=== PATIENT | female | born 1980 | race Caucasian/White ===

== ENCOUNTER → 2016-07-29 | Outpatient (CLI) | payer OTHER ==
[~2016-07-29] MED LIST: PRENTAB26 PO
== END | disposition home or self-care (01) ==
LOC: C.PAPS 15:13
PROVIDERS: ATTEND Obstetrics & Gynecology
DX: Z12.4 Encounter for screening for malignant neoplasm of cervix (principal)

== ENCOUNTER → 2017-08-06 | Outpatient (CLI) | payer OTHER ==
--- NOTE | 2017-08-09 11:12 | CODING QUERY MEDICAL NECESSITY ---
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 Please assist us with providing a diagnosis/symptom for the test(s) below: A diagnosis/symptom was not documented on your Order. A valid diagnosis/symptom is required to bill all insurances. Please remember that we are unable to code a diagnosis of rule out, probable, possible, questionable, or suspected. Tests that require a diagnosis: DOS 08/06/17 URINE CULTURE URINE ANALYSIS Provider Signature: Date: Thank you Sona Christine Health Information Management Once completed, please kindly fax back to [phone] For questions please call [phone]
== END | disposition home or self-care (01) ==
LOC: C.LABSPEC 15:49
PROVIDERS: ATTEND Obstetrics & Gynecology

== ENCOUNTER → 2017-08-21 | Outpatient (CLI) | payer OTHER ==
[2017-08-21 17:28] LABS: BASO % 0.2 %; BASO ABS # 0.02 K/uL (0-0.2); EOS % 0.1 %; EOS ABS # 0.01 K/uL (0-0.5); IG# 0.02 K/uL (0.00-0.02); LYMPH % 16.5 %; LYMPH ABS # 1.87 K/uL (1.2-3.4); MEAN CELL VOLUME 90.9 fL (80-100); MEAN CORPUSCULAR HGB CONC 34.1 g/dl (32-36); MONO % 5.8 %; MONO ABS # 0.66 K/uL (0.11-0.59); NEUT % 77.2 %; NEUT ABS # 8.72 K/uL (1.4-6.5); PLATELET COUNT 247 K/uL (130-400); RED CELL DISTRIBUTION WIDTH CV 13.1 % (11.5-14.5); RED CELL DISTRIBUTION WIDTH SD 43.3 fL (36.4-46.3)
== END | disposition home or self-care (01) ==
LOC: C.LAB1850 16:14
PROVIDERS: ATTEND Obstetrics & Gynecology
DX: N63.0 Unspecified lump in unspecified breast (principal); O09.521 Supervision of elderly multigravida, first trimester; Z3A.00 Weeks of gestation of pregnancy not specified

== ENCOUNTER → 2017-08-29 | Outpatient (CLI) | payer OTHER ==
--- NOTE | 2017-09-01 12:41 | MAMMOGRAPHY REPORT ---
ULTRASOUND OF LEFT BREAST: 08/29/2017 CLINICAL HISTORY: The patient is currently 8 weeks , and reports that her doctor felt a palpa ble left breast lump during her first exam. The provider note reports that the lump is loca fatou in the left 2:00 breast and measures approximately 1 cm. COMPARISON: No prior exams were available for comparison. TECHNIQUE: Real-time targeted ultrasound of the left breast was performed. FINDINGS: Real-time, high-resolution targeted ultrasound was performed of the area of the palpable jyoti mp described by the ordering provider, in the left 2:00 breast. The patient cannot clearly pinpoint the lump herself. Sonographically normal tissue is seen in this region, without evidence of a mass o r other suspicious sonographic abnormality. IMPRESSION: ACR BI-RADS CATEGORY 1: NEGATIVE No suspicious sonographic abnormality seen in the region of the palpable left 2:00 breast lump descri bed by the referring provider. Note that the patient could not pinpoint the exact location of the jyoti mp herself. There is no sonographic evidence of malignancy. Recommend clinical follow-up; any decis ion to biopsy should be based on clinical grounds. The patient was verbally notified of the results. Kinza Gay M.D. ah/:08/29/2017 11:38:57 Attending Technologist: Umer SHELTON(Ricardo)(M), [facility] Administrative Assistant: Kinza Gay MD, [facility] letter sent: Normal 1/2 BI-RADS Code: ACR BI-RADS Category 1: Negative
== END | disposition home or self-care (01) ==
LOC: C.MAMM 11:03
PROVIDERS: ATTEND Obstetrics & Gynecology
DX: N63.20 Unspecified lump in the left breast, unspecified quadrant (principal); Z3A.01 Less than 8 weeks gestation of pregnancy

== ENCOUNTER → 2017-10-23 | Outpatient (CLI) | payer OTHER | END | disposition home or self-care (01) | LOC: C.LAB1850 12:05 | PROVIDERS: ATTEND Obstetrics & Gynecology | DX: O09.522 Supervision of elderly multigravida, second trimester (principal); Z3A.00 Weeks of gestation of pregnancy not specified ==

== ENCOUNTER → 2018-01-15 | Outpatient (CLI) | payer OTHER ==
[2018-01-15 13:06] LABS: HEMOGLOBIN 12.9 g/dL (12.0-16.0)
== END | disposition home or self-care (01) ==
LOC: C.LAB1850 12:04
PROVIDERS: ATTEND Obstetrics & Gynecology
DX: O09.523 Supervision of elderly multigravida, third trimester (principal)

== ENCOUNTER → 2018-01-19 | Outpatient (CLI) | payer OTHER | END | disposition home or self-care (01) | LOC: C.LAB1850 07:10 | PROVIDERS: ATTEND Obstetrics & Gynecology | DX: O28.1 Abnormal biochemical finding on antenatal screening of mother (principal); Z3A.00 Weeks of gestation of pregnancy not specified ==

== ENCOUNTER 2024-12-15 20:52 | Observation (INO) ==
[2024-12-15 21:34] LABS: Hematocrit (blood only) 41.8 % (37.0-47.0); Hemoglobin 14.1 g/dl (12.0-16.0); Immature Granulocytes # (auto) 0.07 K/uL (0.01-0.20); Immature Granulocytes % (auto) 0.4 %; Mean Corpuscular Hemoglobin 29.3 pg (25.0-34.0); Mean Corpuscular Volume 86.7 fL (80.0-100.0); Platelet Count 226 K/uL (130-400); RDW Standard Deviation 39.3 fL (36.4-46.3); Red Blood Count 4.82 M/uL (4.20-5.40); White Blood Count 16.75 K/ul (4.8-10.8)
[2024-12-15 21:52] LABS: Alanine Aminotransferase 27.0 U/L (7-52); Albumin Globulin Ratio 1.4 (0.9-2); Alkaline Phosphatase 71.0 U/L (34-104); Anion Gap 11.0 (3-11); Bilirubin,Total 3.0 mg/dl (0.2-1.0); Blood Urea Nitrogen 11.0 mg/dl (6-23); Calcium 9.5 mg/dl (8.6-10.3); Carbon Dioxide 26.0 mmol/L (21-32); Chloride 101.0 mmol/L (98-107); Creatinine Clr Calc Pharmacy 90.6 ml/min; Globulin 3.2 gm/dl (2.5-4.0); Glucose 163.0 mg/dl (70-99(Fasting)); Lipase 9.0 U/L (11-82); Potassium 4.0 mmol/L (3.5-5.1); Sodium 138.0 mmol/L (136-145); Total Protein 7.6 gm/dl (6.0-8.3)
[2024-12-15] MEDS: SODIUM CHLORIDE 0.9% 1,000 ML IV ONE (21:53)
[2024-12-15] MEDS: MoRPHine SULFATE 4 MG/ML 1 ML CARP\\VIAL IV STA (21:54)
[2024-12-15] MEDS: ONDANSETRON INJ 2 MG/ML 2 ML VIAL IV STA (21:54)
[2024-12-15 22:07] LABS: Pregnancy Test, Serum Negative (Negative)
[2024-12-15] MEDS: OPTIRAY 320 100ml IV ONE (22:20)
[2024-12-15] MEDS: MoRPHine SULFATE 4 MG/ML 1 ML CARP\\VIAL ONE (22:29)
[2024-12-15] MEDS: ONDANSETRON INJ 2 MG/ML 2 ML VIAL ONE (22:29)
--- NOTE | 2024-12-15 23:32 | Emergency Department Note ---
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 Patient states she is healthy and no prior abdominal surgeries. No history of ovarian cysts. Patient denies chest pain, dyspnea, fevers, flulike illness. She has been vomiting. No diarrhea. Home Medications Medication Instructions Recorded Confirmed Type fluticasone propionate 50 1 spray intranasal DAILY 12/15/24 12/15/24 History mcg/actuation nasal spray,suspension multivitamin 1 tab PO DAILY 12/15/24 12/15/24 History Allergies Allergy/AdvReac Type Severity Reaction Status Date / Time sulfamethoxazole Allergy Intermediate ITCHY RED Verified 12/15/24 23:02 [From Bactrim] SKIN/NAUSEA/HEADACHE/ABD PAIN trimethoprim [From Bactrim] Allergy Intermediate ITCHY RED Verified 12/15/24 23:02 SKIN/NAUSEA/HEADACHE/ABD PAIN Past Med/Surg History Problem List (Updated 12/16/24 @ 01:31 by Concepcion Henderson PA-C) Acute appendicitis (Acute) Unexplained night sweats Menorrhagia with regular cycle Normal vaginal delivery Encounter for pre-operative examination with 38 completed weeks gestation Medical History (Updated 12/16/24 @ 01:31 by Concepcion Henderson PA-C) Migraine Urinary tract infection Surgical History H/O oral surgery tooth extraction Family History Mother Murmur Thyroid disease Dyslipidemia Sister Murmur Grandmother (Paternal) Thyroid disease Heart disease Dyslipidemia Aunt Thyroid disease Aunt Thyroid disease Grandmother (Maternal) Heart disease Dyslipidemia Grandfather (Maternal) Heart disease Dyslipidemia Grandfather (Paternal) Heart disease Dyslipidemia Other Aortic valve prolapse Arthritis Atypical chest pain Breast cancer Breast lump Cervical cancer Cluster headache Colitis Diabetes Diarrhea Hypertension Osteoporosis Twin Varicella Denies family history of Ovarian cancer Colorectal cancer Social History Smoking Status: Never smoker Second Hand Exposure: No; Do You Dip or Chew Tobacco: No; Tobacco Cessation Education Requested by Patient: No Hx Alcohol Use: Yes Alcohol type: wine Hx Substance Use: No Preferred Language: [place] Communication Ability: Effective Armament Mechanic Required: No Beliefs That Will Affect Care: None marital status: Current Living Situation: Family Other Information That Helps Us Care for You: No Feels Safe at Home: Yes Safety Concerns: Feels Safe At This Time Assistive Devices: Glasses Assistive Devices Comment: glasses for distance Review of Systems A total of 10 systems reviewed and were otherwise negative Physical Exam Vital Signs Vital Signs - 24 hr 12/15/24 20:53 12/15/24 21:39 12/15/24 21:54 Temperature 36.5 C Temperature Source Temporal Artery Scan Pulse Rate 70 63 Pulse Rate [Apical] 70 Pulse Rhythm Regular Pulse Strength Normal Respiratory Rate 18 20 Respiratory Effort / Characteristics Non-Labored Spontaneous Respiratory Depth Normal Respiratory Pattern Regular Blood Pressure 103/68 Blood Pressure [Left Arm] 122/73 Blood Pressure Mean 79 Blood Pressure Mean [Left Arm] 89 Blood Pressure Position Sitting Pulse Oximetry 100 99 Oxygen Delivery Method Room Air Room Air Sepsis Recent Fever Within 48 Hours No Sepsis New/Unexplained Change in Mental Status N/A Sepsis Action Taken by Nursing No Action Required 12/15/24 23:25 Temperature Temperature Source Pulse Rate Pulse Rate [Apical] 71 Pulse Rhythm Pulse Strength Respiratory Rate 20 Respiratory Effort / Characteristics Respiratory Depth Respiratory Pattern Blood Pressure Blood Pressure [Left Arm] 121/70 Blood Pressure Mean Blood Pressure Mean [Left Arm] 87 Blood Pressure Position Pulse Oximetry 99 Oxygen Delivery Method Room Air Sepsis Recent Fever Within 48 Hours Sepsis New/Unexplained Change in Mental Status Sepsis Action Taken by Nursing VITALS: Vitals are noted on the nurse's note and reviewed by myself. Vital signs stable. GENERAL: White female who appears in pain, in no acute distress, nondiaphoretic, well-developed well-nourished. SKIN: Capillary reflex less than 2 seconds. HEENT: Normocephalic. PERRLA. EOMI. Nares patent. Mucous membranes moist. Neck is supple without nuchal rigidity. HEART: Regular rate and rhythm LUNGS: Clear to auscultation bilaterally without wheezes, rales or rhonchi. No retractions or accessory muscle use. ABDOMEN: Positive bowel sounds x 4. Normal tympanic percussion. Soft, diffusely tender to palpation with increased pain in the right lower and upper quadrants, without masses or organomegaly. Peralta sign negative. No guarding or rebound tenderness. no CVA tenderness MUSCULOSKELETAL: No gross musculoskeletal defects. NEURO: Patient was alert and oriented to person place and time. No focal neurological deficits. Course Administered Medications Morphine Sulfate (Morphine Sulfate 4 Mg/Ml 1 Ml Carp\Vial) 4 mg IV Q3H PRN PRN Reason: Pain (6,7,8,9,10) Stop: 12/30/24 00:04 Last Admin: 12/16/24 01:55 Dose: 4 mg Documented By: LUIS Ondansetron HCl (Ondansetron Inj 2 Mg/Ml 2 Ml Vial) 4 mg IV Q6H PRN PRN Reason: Nausea Stop: 01/15/25 00:04 Last Admin: 12/16/24 01:55 Dose: 4 mg Documented By: LUIS Discontinued Medications Sodium Chloride (Nss) 1,000 mls @ 999 mls/hr IV .Q1H1M ONE Stop: 12/15/24 22:40 Last Infusion: 12/15/24 23:29 Dose: Infused Documented By: Admin: 12/15/24 21:53 Dose: 999 mls/hr Documented By: QGV Piperacillin Sod/Tazobactam Sod (Zosyn) 4.5 gm in 100 mls @ 200 mls/hr IV NOW ONE; Protocol Stop: 12/16/24 00:14 Last Admin: 12/16/24 01:55 Dose: 200 mls/hr Documented By: LUIS Ioversol (Optiray 320 100ml) 93 ml IV ONCE ONE Stop: 12/15/24 22:21 Last Admin: 12/15/24 22:20 Dose: 93 ml Documented By: AL Morphine Sulfate (Morphine Sulfate 4 Mg/Ml 1 Ml Carp\Vial) 4 mg IV NOW STA Stop: 12/15/24 21:41 Last Admin: 12/15/24 21:54 Dose: 4 mg Documented By: QGV Morphine Sulfate (Morphine Sulfate 4 Mg/Ml 1 Ml Carp\Vial) Confirm Administered Dose 4 mg .ROUTE .STK-MED ONE Stop: 12/15/24 21:42 Last Admin: 12/15/24 22:29 Dose: Not Given Documented By: QGV Ondansetron HCl (Ondansetron Inj 2 Mg/Ml 2 Ml Vial) 4 mg IV NOW STA Stop: 12/15/24 21:41 Last Admin: 12/15/24 21:54 Dose: 4 mg Documented By: QGV Ondansetron HCl (Ondansetron Inj 2 Mg/Ml 2 Ml Vial) Confirm Administered Dose 4 mg .ROUTE .STK-MED ONE Stop: 12/15/24 21:42 Last Admin: 12/15/24 22:29 Dose: Not Given Documented By: QGV Medical Decision Making Medical Records Attestation: I reviewed the patient's medical records. Home Medications Current Medication List: was personally reviewed by me Laboratory Data Attestation: I reviewed the patient's lab results. 12/15/24 21:22 12/15/24 21:22 Lab Results 12/15/24 12/15/24 12/15/24 Range/Units 21:22 21:54 23:25 WBC 16.75 H (4.8-10.8) K/ul RBC 4.82 (4.20-5.40) M/uL Hgb 14.1 (12.0-16.0) g/dl POC Hgb 14.3 (12.0-16.0) g/dl Hct 41.8 (37.0-47.0) % POC Hct 42 (37-47) % MCV 86.7 (80.0-100.0) fL MCH 29.3 (25.0-34.0) pg MCHC 33.7 (32.0-36.0) g/dL RDW Std Deviation 39.3 (36.4-46.3) fL RDW Coeff of Alexandra 12.3 (11.5-14.5) % Plt Count 226 (130-400) K/uL MPV 10.2 (9.4-12.4) fL Immature Gran % (Auto) 0.4 % Neut % (Auto) 89.4 % Lymph % (Auto) 6.7 % [place] % (Auto) 3.3 % Eos % (Auto) 0.0 % Baso % (Auto) 0.2 % Neut # (Auto) 14.96 H (1.40-6.50) K/uL Lymph # (Auto) 1.13 L (1.20-3.40) K/uL [place] # (Auto) 0.55 (0.11-0.59) K/uL Eos # (Auto) 0.00 (0.00-0.50) K/uL Baso # (Auto) 0.04 (0.00-0.20) K/uL Immature Gran # (Auto) 0.07 (0.01-0.20) K/uL POC Sodium 139 (135-144) mmol/L Sodium 138 (136-145) mmol/L POC Potassium 3.6 (3.3-5.0) mmol/L Potassium 4.0 (3.5-5.1) mmol/L POC Chloride 104 (101-112) mmol/L Chloride 101 (98-107) mmol/L Carbon Dioxide 26 (21-32) mmol/L POC Total CO2 23 L (24-31) mmol/L Anion Gap 11 (3-11) POC Anion Gap 17.0 (16-25) mmol/L POC BUN 10 (7-18) mg/dl BUN 11 (6-23) mg/dl Creatinine 0.78 (0.6-1.2) mg/dl POC Creatinine 0.7 (0.6-1.3) mg/dl Est Cr Clr Drug Dosing 90.6 ml/min eGFR 97.19 BUN/Creatinine Ratio 14.1 (10-20) Glucose 163 H (70-99(Fasting)) mg/dl POC Glucose (other) 158 H (70-99) mg/dl Calcium 9.5 (8.6-10.3) mg/dl POC Ioniz Calcium Sakshi 1.14 (1.12-1.32) mmol/l Total Bilirubin 3.0 H (0.2-1.0) mg/dl AST 15 (13-39) U/L ALT 27 (7-52) U/L Alkaline Phosphatase 71 (34-104) U/L Total Protein 7.6 (6.0-8.3) gm/dl Albumin 4.4 (3.4-5.0) gm/dl Globulin 3.2 (2.5-4.0) gm/dl Albumin/Globulin Ratio 1.4 (0.9-2) Lipase 9 L (11-82) U/L HCG, Qual Negative (Negative) Urine Color Yellow Urine Appearance Clear (Clear) Urine pH 8.0 H (4.5-7.5) Ur Specific [place] > 1.045 H (1.000-1.030) Urine Protein 1+ H (Negative) Urine Glucose (UA) Negative (Negative) Urine Ketones 2+ H (Negative) Urine Blood Negative (Negative) Urine Nitrite Negative (Negative) Urine Bilirubin Negative (Negative) Urine Urobilinogen Negative (Negative) Ur Leukocyte Esterase Negative (Negative) Urine WBC (Auto) 0-5 (0-5) /hpf Urine RBC (Auto) 3-5 H (0-2) /hpf U Hyaline Cast (Auto) 0-2 (0-2) /lpf U Epithel Cells (Auto) 0-2 (0-2) /hpf Urine Bacteria (Auto) None Seen (None Seen) Urine Comment Imaging Data Attestation: I personally reviewed and interpreted this imaging study as follows: Radiologist's Impression: Abdomen/Pelvis CT 12/15/24 21:46 CR Exam(s): CT ABDOMEN + PELVIS With Contrast IV Amt: 93 cc opti 320 EXAM: CT Abdomen and Pelvis With Intravenous Contrast CLINICAL HISTORY: Reason for exam: severe pain started RLQ, now all over. TECHNIQUE: Axial computed tomography images of the abdomen and pelvis with intravenous contrast. CTDI is 14.64 mGy and DLP is 743.73 mGy-cm. Automated exposure control was utilized for the study. A dose lowering technique was utilized adhering to the principles of ALARA. CONTRAST: Patient received 93 cc opti 320 of IV contrast COMPARISON: No relevant prior studies available. FINDINGS: Lung bases: Unremarkable. No mass. No consolidation. ABDOMEN: Liver: Unremarkable. No mass. Gallbladder and bile ducts: Unremarkable. No calcified stones. No ductal dilation. Pancreas: Unremarkable. No mass. No ductal dilation. Spleen: Unremarkable. No splenomegaly. Adrenals: Unremarkable. No mass. Kidneys and ureters: Unremarkable. No solid mass. No hydronephrosis. Stomach and bowel: Unremarkable. No obstruction. No mucosal thickening. PELVIS: Appendix: Wall thickening and inflammatory changes about the appendix. No periappendiceal abscess. Bladder: Unremarkable. No mass. Reproductive: Unremarkable as visualized. ABDOMEN and PELVIS: Intraperitoneal space: Trace free fluid within the dependent pelvis likely physiologic in nature. No free air. Bones/joints: No acute fracture. No dislocation. Soft tissues: Unremarkable. Vasculature: Unremarkable. No abdominal aortic aneurysm. Lymph nodes: Unremarkable. No enlarged lymph nodes. IMPRESSION: Acute appendicitis without periappendiceal abscess Gene and Karena Michelle marcy common [employer] Communications: Call Doctor Appendicitis Electronically signed by: Seth Shaw MD 12/15/24 23:40 PM Pelvis Ultrasound 12/15/24 21:46 Exam(s): US PELVIS EXAM: US Pelvis Transabdominal, Complete CLINICAL HISTORY: Reason for exam: severe pain, ? ruptured cyst/torsion. TECHNIQUE: Real-time complete transabdominal pelvic ultrasound with image documentation. COMPARISON: No relevant prior studies available. FINDINGS: Uterus/cervix: Unremarkable. Normal endometrial stripe thickness. No myometrial mass. Right ovary: Unremarkable. No mass. Normal blood flow. Left ovary: Unremarkable. No mass. Normal blood flow. Free fluid: Trace free fluid within dependent pelvis. Bladder: Unremarkable as visualized. Wall is normal thickness for degree of distention. IMPRESSION: No acute findings in the pelvis. No evidence of torsion Electronically signed by: Seth Shaw MD 12/16/24 00:27 AM MDM Narrative Prior records/ancillary studies reviewed. Triage Nursing notes reviewed. Additional history obtained from family. The patient's history was concerning for abdominal pain. Differential diagnosis: Etiologies such as ovarian cyst, ruptured cyst, torsion, , ectopic , appendicitis, diverticulitis, PUD, biliary pathology, UTI, pancreatitis, obstruction, mesenteric ischemia, aortic pathology, infections, inflammatory bowel disease, renal colic, as well as others were entertained. Physical examination findings: As above. ER treatment provided: An order was placed for continuous cardiac monitoring. The monitor shows a rate of 60-100 with a sinus rhythm per my Independent interpretation. Rapid bedside ultrasound shows trace free fluid in the pelvic cul-de-sac per my independent interpretation. IV fluids, morphine, Zofran and fentanyl were ordered Zosyn was ordered for acute appendicitis On reassessment the patient felt better. Diagnostics interpreted by me: The labs Independently Interpreted by myself revealed leukocytosis, stable H&H, negative hCG Imaging studies: Imaging was reviewed and read by radiology Consultation: A consultation was placed with the surgery, Dr. Alvarez. The case was discussed and diagnostics were reviewed. The patient was evaluated in the ER for further treatment. Exam and history seem consistent with acute appendicitis. Surgery was consulted. They will take the patient to the OR in the morning. Patient was placed NPO. Results reviewed with patient and all questions were answered. Patient was admitted to the surgical service. By the evaluation outlined above emergent etiologies such as diverticulitis, PUD, biliary pathology, UTI, pancreatitis, obstruction, mesenteric ischemia, aortic pathology, inflammatory bowel disease, renal colic, as well as others were deemed relatively unlikely. The pt informed about the findings as listed above. All questions were answered and pleased with the treatment. The chart was completed utilizing [employer] Speech voice recognition software. Grammatical errors, random word insertions, pronoun errors, and incomplete sentences are an occassional consequence of this system due to software limitations, ambient noise, and hardware issues. Any formal questions or concerns about the content, text, or information contained within the body of this dictation should be directly addressed to the physician assistant activities director for clarification. Impression & Plan Acute appendicitis Discharge Plan Visit Data Chief Complaint: Abdominal Pain Stated Complaint: ABD PAIN,VOMITING ED Provider: Chelle Johnson ED Midlevel Provider: Concepcion Henderson Discharge Problem: Acute appendicitis Patient Disposition: Admitted As Inpatient Condition: Good Discharge Instructions Interventions: ED Discharge Assessment Last Done: 12/16/24 02:16 Discharge Problem: Acute appendicitis Qualifiers: Acute appendicitis type: unspecified acute appendicitis type Qualified Code(s): K35.80 - Unspecified acute appendicitis
--- NOTE | 2024-12-15 23:41 | CT Scan Report ---
Exam(s): CT ABDOMEN + PELVIS With Contrast IV Amt: 93 cc opti 320 EXAM: CT Abdomen and Pelvis With Intravenous Contrast CLINICAL HISTORY: Reason for exam: severe pain started RLQ, now all over. TECHNIQUE: Axial computed tomography images of the abdomen and pelvis with intravenous contrast. CTDI is 14.64 mGy and DLP is 743.73 mGy-cm. Automated exposure control was utilized for the study. A dose lowering technique was utilized adhering to the principles of ALARA. CONTRAST: Patient received 93 cc opti 320 of IV contrast COMPARISON: No relevant prior studies available. FINDINGS: Lung bases: Unremarkable. No mass. No consolidation. ABDOMEN: Liver: Unremarkable. No mass. Gallbladder and bile ducts: Unremarkable. No calcified stones. No ductal dilation. Pancreas: Unremarkable. No mass. No ductal dilation. Spleen: Unremarkable. No splenomegaly. Adrenals: Unremarkable. No mass. Kidneys and ureters: Unremarkable. No solid mass. No hydronephrosis. Stomach and bowel: Unremarkable. No obstruction. No mucosal thickening. PELVIS: Appendix: Wall thickening and inflammatory changes about the appendix. No periappendiceal abscess. Bladder: Unremarkable. No mass. Reproductive: Unremarkable as visualized. ABDOMEN and PELVIS: Intraperitoneal space: Trace free fluid within the dependent pelvis likely physiologic in nature. No free air. Bones/joints: No acute fracture. No dislocation. Soft tissues: Unremarkable. Vasculature: Unremarkable. No abdominal aortic aneurysm. Lymph nodes: Unremarkable. No enlarged lymph nodes. IMPRESSION: Acute appendicitis without periappendiceal abscess Jonathan vidal common teen Communications: Call Doctor Appendicitis Electronically signed by: Seth Shaw MD 12/15/24 23:40 PM
[2024-12-16 00:04] LABS: Appearance Urine Clear (Clear); Bacteria Urine Automated None Seen (None Seen); Cast Urine Automated 0-2 /lpf (0-2); Epithelial Cell Urine Auto 0-2 /hpf (0-2); Glucose Urine UA Negative (Negative); WBC Urine Automated 0-5 /hpf (0-5)
[2024-12-16] MEDS ORDERED: MoRPHine SULFATE 2 MG/ML CARP IV PRN (00:05)
[2024-12-16] MEDS ORDERED: ACETAMINOPHEN 325 MG TAB PO PRN (00:05)
--- NOTE | 2024-12-16 00:29 | Ultrasound Report ---
Exam(s): US PELVIS EXAM: US Pelvis Transabdominal, Complete CLINICAL HISTORY: Reason for exam: severe pain, ? ruptured cyst/torsion. TECHNIQUE: Real-time complete transabdominal pelvic ultrasound with image documentation. COMPARISON: No relevant prior studies available. FINDINGS: Uterus/cervix: Unremarkable. Normal endometrial stripe thickness. No myometrial mass. Right ovary: Unremarkable. No mass. Normal blood flow. Left ovary: Unremarkable. No mass. Normal blood flow. Free fluid: Trace free fluid within dependent pelvis. Bladder: Unremarkable as visualized. Wall is normal thickness for degree of distention. IMPRESSION: No acute findings in the pelvis. No evidence of torsion Electronically signed by: Seth Shaw MD 12/16/24 00:27 AM
[2024-12-16] MEDS: PIPERACILLIN/TAZOBACTAM 4.5 GM/100 ML BAG IV ONE (01:43)
[2024-12-16] MEDS: ONDANSETRON INJ 2 MG/ML 2 ML VIAL IV PRN (01:55)
[2024-12-16] MEDS: MoRPHine SULFATE 4 MG/ML 1 ML CARP\\VIAL IV PRN (01:55)
[2024-12-16] MEDS: LACTATED RINGER'S 1,000 ML IV SCH (03:13)
[2024-12-16] MEDS: PIPERACILLIN/TAZOBACTAM 4.5 GM/100 ML BAG IV SCH (06:31)
--- NOTE | 2024-12-16 09:15 | History & Physical Report ---
Date of Service December 16, 2024 Assessment & Plan (1) Acute appendicitis: Plan: IV abx IVF to OR for lap nura Acute appendicitis type: unspecified acute appendicitis type Qualified Code(s): K35.80 - Unspecified acute appendicitis Admission and Anticipated Discharge Date Admission Date: December 16, 2024 History of Present Illness Primary Care Provider: Kurtis Merritt DO This is a 44-year-old female admitted through the ED with an acute appendicitis. She came in with abdominal pain underwent a workup which showed an obvious early appendicitis. She has begun on IV antibiotics. Allergies Allergy/AdvReac Type Severity Reaction Status Date / Time sulfamethoxazole Allergy Intermediate ITCHY RED Verified 12/16/24 08:51 [From Bactrim] SKIN/NAUSEA/HEADACHE/ABD PAIN trimethoprim [From Bactrim] Allergy Intermediate ITCHY RED Verified 12/16/24 08:51 SKIN/NAUSEA/HEADACHE/ABD PAIN Home Medications Medication Instructions Recorded Confirmed Type fluticasone propionate 50 1 spray intranasal DAILY 12/15/24 12/15/24 History mcg/actuation nasal spray,suspension multivitamin 1 tab PO DAILY 12/15/24 12/15/24 History Past Med/Surg History Problem List Acute appendicitis (Acute) Unexplained night sweats Menorrhagia with regular cycle Normal vaginal delivery Encounter for pre-operative examination with 38 completed weeks gestation Medical History Migraine Urinary tract infection Surgical History H/O oral surgery tooth extraction Family History Mother Murmur Thyroid disease Dyslipidemia Sister Murmur Grandmother (Paternal) Thyroid disease Heart disease Dyslipidemia Aunt Thyroid disease Aunt Thyroid disease Grandmother (Maternal) Heart disease Dyslipidemia Grandfather (Maternal) Heart disease Dyslipidemia Grandfather (Paternal) Heart disease Dyslipidemia Other Aortic valve prolapse Arthritis Atypical chest pain Breast cancer Breast lump Cervical cancer Cluster headache Colitis Diabetes Diarrhea Hypertension Osteoporosis Twin Varicella Denies family history of Ovarian cancer Colorectal cancer Social History Smoking Status: Never smoker Second Hand Exposure: No; Do You Dip or Chew Tobacco: No; Tobacco Cessation Education Requested by Patient: No Hx Alcohol Use: Yes Alcohol type: wine Hx Substance Use: No Preferred Language: Vietnamese Communication Ability: Effective Goat Herder Required: No Beliefs That Will Affect Care: None marital status: Current Living Situation: Family Other Information That Helps Us Care for You: No Feels Safe at Home: Yes Safety Concerns: Feels Safe At This Time Assistive Devices: Glasses Assistive Devices Comment: glasses for distance Review of Systems + anorexia; no fever and no chills no problem reported no problem reported no cough and no dyspnea no chest pain + abdominal pain; no nausea, no vomiting and no change in bowel habits no dysuria no back pain no problem reported no localized weakness and no generalized weakness no behavioral changes no easy bleeding and no easy bruising Physical Exam Constitutional: WD/WN, vitals as above Eyes: no scleral abnormality ENMT: external ear and nose normal, oropharynx normal Neck: trachea midline Respiratory: normal respiratory effort, lungs clear to auscultation Cardiovascular: RRR, no murmur, no edema Gastrointestinal (Abdomen): Inspection/Auscultation: abdomen normal to inspection and normal bowel sounds; abdomen not distended Percussion/Palpation: + abdomen tender, + guarding and abdomen soft; abdomen not rigid Musculoskeletal: Head/Neck/Chest: normocephalic and head atraumatic Skin: no rashes, warm and dry Results & Data Vital Signs (Past 12 Hours) Vital Signs Temp Pulse Pulse Pulse Resp BP BP 12/16/24 08:45 36.7 C 90 15 111/67 12/16/24 07:16 37.5 C 74 17 95/60 L 12/16/24 02:16 87 18 121/74 12/16/24 02:15 37.4 C 87 16 117/72 12/15/24 23:25 71 20 121/70 12/15/24 21:54 63 12/15/24 21:39 70 20 122/73 Pulse Ox O2 Del Method 12/16/24 08:45 94 Room Air 12/16/24 07:16 98 Room Air 12/16/24 02:16 97 Room Air 12/16/24 02:15 98 Room Air 12/15/24 23:25 99 Room Air 12/15/24 21:54 12/15/24 21:39 99 Room Air Diagnostic Findings Exam(s): CT ABDOMEN + PELVIS With Contrast IV Amt: 93 cc opti 320 EXAM: CT Abdomen and Pelvis With Intravenous Contrast CLINICAL HISTORY: Reason for exam: severe pain started RLQ, now all over. TECHNIQUE: Axial computed tomography images of the abdomen and pelvis with intravenous contrast. CTDI is 14.64 mGy and DLP is 743.73 mGy-cm. Automated exposure control was utilized for the study. A dose lowering technique was utilized adhering to the principles of ALARA. CONTRAST: Patient received 93 cc opti 320 of IV contrast COMPARISON: No relevant prior studies available. FINDINGS: Lung bases: Unremarkable. No mass. No consolidation. ABDOMEN: Liver: Unremarkable. No mass. Gallbladder and bile ducts: Unremarkable. No calcified stones. No ductal dilation. Pancreas: Unremarkable. No mass. No ductal dilation. Spleen: Unremarkable. No splenomegaly. Adrenals: Unremarkable. No mass. Kidneys and ureters: Unremarkable. No solid mass. No hydronephrosis. Stomach and bowel: Unremarkable. No obstruction. No mucosal thickening. PELVIS: Appendix: Wall thickening and inflammatory changes about the appendix. No periappendiceal abscess. Bladder: Unremarkable. No mass. Reproductive: Unremarkable as visualized. ABDOMEN and PELVIS: Intraperitoneal space: Trace free fluid within the dependent pelvis likely physiologic in nature. No free air. Bones/joints: No acute fracture. No dislocation. Soft tissues: Unremarkable. Vasculature: Unremarkable. No abdominal aortic aneurysm. Lymph nodes: Unremarkable. No enlarged lymph nodes. IMPRESSION: Acute appendicitis without periappendiceal abscess Code Status & VTE Plan VTE Prophylaxis Plan VTE Prophylaxis will be ordered: Yes
[2024-12-16] MEDS ORDERED: PROMETHAZINE HCL 6.25 MG in SODIUM CHLORIDE 0.9% 50 ML IV PRN (09:39)
[2024-12-16] MEDS ORDERED: HYDROmorphone INJ 2 MG/ML SYR/VIAL IV PRN (09:39)
[2024-12-16] MEDS ORDERED: ATROPINE SULFATE 0.1 MG/ML 10ML SYR IV PRN (09:39)
--- NOTE | 2024-12-16 09:39 | Anesthesiology Consultation ---
Date of Service December 16, 2024 Assessment & Plan ASA ASA1 Proposed Anesthesia Anesthesia Type: General Risk / Benefits Reviewed With: PT / POA / Parent / Guardian, Accepts Plan and Informed Consent Obtained History Surgery Operation Date: 12/16/24 07:00 Proposed Procedures p Laparoscopic Appendectomy - Gama Curtis MD Height/Weight Height: 5 ft 4 in Weight: 71.2 kg Allergies Allergy/AdvReac Type Severity Reaction Status Date / Time sulfamethoxazole Allergy Intermediate ITCHY RED Verified 12/16/24 08:51 [From Bactrim] SKIN/NAUSEA/HEADACHE/ABD PAIN trimethoprim [From Bactrim] Allergy Intermediate ITCHY RED Verified 12/16/24 08:51 SKIN/NAUSEA/HEADACHE/ABD PAIN Medications Home Medications Medication Instructions Recorded Confirmed Last Taken fluticasone propionate 50 1 spray intranasal DAILY 12/15/24 12/15/24 12/15/24 mcg/actuation nasal spray,suspension multivitamin 1 tab PO DAILY 12/15/24 12/15/24 12/15/24 Active Medications Generic Name Dose Route Start Last Admin Trade Name Freq PRN Reason Stop Dose Admin Lactated Ringer's 1,000 mls @ 80 mls/hr 12/16/24 02:00 12/16/24 03:13 Lr IV 12/19/24 01:59 80 mls/hr .[id number] KATHERINE Administration Piperacillin Sod/Tazobactam Sod 4.5 gm in 100 mls @ 25 mls/hr 12/16/24 06:00 12/16/24 06:31 Zosyn IV 12/26/24 05:59 25 mls/hr Q8H KATHERINE Administration Protocol Morphine Sulfate 4 mg 12/16/24 00:05 12/16/24 08:25 Morphine Sulfate 4 Mg/Ml 1 Ml Carp\Vial IV 12/30/24 00:04 4 mg Q3H PRN Administration Pain (6,7,8,9,10) Ondansetron HCl 4 mg 12/16/24 00:05 12/16/24 08:25 Ondansetron Inj 2 Mg/Ml 2 Ml Vial IV 01/15/25 00:04 4 mg Q6H PRN Administration Nausea NPO Date Last Intake of Fluids: 12/15/24 Time Last Intake of Fluids: 10:00 Date Last Intake of Solids: 12/14/24 Time Last Intake of Solids: 11:30 Past Medical History Medical History Migraine Urinary tract infection Exercise / Class Metabolic Activity II 4-5 Yardwork/Stairs/Walk up hill Past Family History Family History Mother Murmur Thyroid disease Dyslipidemia Sister Murmur Grandmother (Paternal) Thyroid disease Heart disease Dyslipidemia Aunt Thyroid disease Aunt Thyroid disease Grandmother (Maternal) Heart disease Dyslipidemia Grandfather (Maternal) Heart disease Dyslipidemia Grandfather (Paternal) Heart disease Dyslipidemia Other Aortic valve prolapse Arthritis Atypical chest pain Breast cancer Breast lump Cervical cancer Cluster headache Colitis Diabetes Diarrhea Hypertension Osteoporosis Twin Varicella Denies family history of Ovarian cancer Colorectal cancer Past Surgical History Surgical History H/O oral surgery tooth extraction Past Anesthesia History No Hx of Anesthesia Complications and No Family Hx of Anesthesia Complications History of PONV No Hx of PONV and No Hx of Motion Sickness Social History Smoking Status: Never smoker Do You Dip or Chew Tobacco: No Hx Alcohol Use: Yes Alcohol type: wine alcohol intake frequency: holidays/special occasions only Hx Substance Use: No Physical Exam Vital Signs Last Vital Signs Temp 36.7 C 12/16/24 08:45 Pulse 90 12/16/24 08:45 Resp 15 12/16/24 08:45 BP 111/67 12/16/24 08:45 Pulse Ox 94 12/16/24 08:45 O2 Del Method Room Air 12/16/24 08:45 Constitutional no acute distress ENMT Mouth: no dentition abnormality Thyromental Distance: > or= 3.5 Finger Breadths Mallampati Class: II Neck normal visual inspection Respiratory normal respiratory effort; no respiratory distress Auscultation: lungs clear to auscultation bilaterally Cardiovascular Rate/Rhythm: regular rate and regular rhythm Heart Sounds: no murmur Musculoskeletal Spine: normal cervical ROM Psychiatric Orientation: alert and oriented x 3 Testing Laboratory Results 12/15/24 21:22 12/15/24 21:22 Urine Color Yellow 12/15/24 23:25 Urine Appearance Clear (Clear) 12/15/24 23:25 Urine pH 8.0 (4.5-7.5) H 12/15/24 23:25 Ur Specific [place] > 1.045 (1.000-1.030) H 12/15/24 23:25 Urine Protein 1+ (Negative) H 12/15/24 23:25 Urine Glucose (UA) Negative (Negative) 12/15/24 23:25 Urine Ketones 2+ (Negative) H 12/15/24 23:25 Urine Nitrite Negative (Negative) 12/15/24 23:25 Ur Leukocyte Esterase Negative (Negative) 12/15/24 23:25 Urine WBC (Auto) 0-5 /hpf (0-5) 12/15/24 23:25 Urine RBC (Auto) 3-5 /hpf (0-2) H 12/15/24 23:25 U Hyaline Cast (Auto) 0-2 /lpf (0-2) 12/15/24 23:25 U Epithel Cells (Auto) 0-2 /hpf (0-2) 12/15/24 23:25 Urine Bacteria (Auto) None Seen (None Seen) 12/15/24 23:25 12/15/24 21:54 POC Glucose (other) 158 H Day of Procedure Evaluation. Date of Surgery December 16, 2024 Height/Weight Height: 5 ft 4 in Weight: 71.2 kg Vital Signs Last Vital Signs Temp 36.7 C 12/16/24 08:45 Pulse 90 12/16/24 08:45 Resp 15 12/16/24 08:45 BP 111/67 12/16/24 08:45 Pulse Ox 94 12/16/24 08:45 O2 Del Method Room Air 12/16/24 08:45 Allergies Allergy/AdvReac Type Severity Reaction Status Date / Time sulfamethoxazole Allergy Intermediate ITCHY RED Verified 12/16/24 08:51 [From Bactrim] SKIN/NAUSEA/HEADACHE/ABD PAIN trimethoprim [From Bactrim] Allergy Intermediate ITCHY RED Verified 12/16/24 08:51 SKIN/NAUSEA/HEADACHE/ABD PAIN Medications Home Medications Medication Instructions Recorded Confirmed Last Taken fluticasone propionate 50 1 spray intranasal DAILY 12/15/24 12/15/24 12/15/24 mcg/actuation nasal spray,suspension multivitamin 1 tab PO DAILY 12/15/24 12/15/24 12/15/24 Active Medications Generic Name Dose Route Start Last Admin Trade Name Freq PRN Reason Stop Dose Admin Lactated Ringer's 1,000 mls @ 80 mls/hr 12/16/24 02:00 12/16/24 03:13 Lr IV 12/19/24 01:59 80 mls/hr .[id number] KATHERINE Administration Piperacillin Sod/Tazobactam Sod 4.5 gm in 100 mls @ 25 mls/hr 12/16/24 06:00 12/16/24 06:31 Zosyn IV 12/26/24 05:59 25 mls/hr Q8H KATHERINE Administration Protocol Morphine Sulfate 4 mg 12/16/24 00:05 12/16/24 08:25 Morphine Sulfate 4 Mg/Ml 1 Ml Carp\Vial IV 12/30/24 00:04 4 mg Q3H PRN Administration Pain (6,7,8,9,10) Ondansetron HCl 4 mg 12/16/24 00:05 12/16/24 08:25 Ondansetron Inj 2 Mg/Ml 2 Ml Vial IV 01/15/25 00:04 4 mg Q6H PRN Administration Nausea Past Anesthesia History No Hx of Anesthesia Complications and No Family Hx of Anesthesia Complications History of PONV No Hx of PONV and No Hx of Motion Sickness NPO Date Last Intake of Fluids: 12/15/24 Time Last Intake of Fluids: 10:00 Date Last Intake of Solids: 12/14/24 Time Last Intake of Solids: 11:30 HCG & FBG Results 12/15/24 21:54 POC Glucose (other) 158 H Home Medications Home Medications Medication Instructions Recorded Confirmed Last Taken fluticasone propionate 50 1 spray intranasal DAILY 12/15/24 12/15/24 12/15/24 mcg/actuation nasal spray,suspension multivitamin 1 tab PO DAILY 12/15/24 12/15/24 12/15/24 Active Medications Generic Name Dose Route Start Last Admin Trade Name Freq PRN Reason Stop Dose Admin Lactated Ringer's 1,000 mls @ 80 mls/hr 12/16/24 02:00 12/16/24 03:13 Lr IV 12/19/24 01:59 80 mls/hr .[id number] KATHERINE Administration Piperacillin Sod/Tazobactam Sod 4.5 gm in 100 mls @ 25 mls/hr 12/16/24 06:00 12/16/24 06:31 Zosyn IV 12/26/24 05:59 25 mls/hr Q8H KATHERINE Administration Protocol Morphine Sulfate 4 mg 12/16/24 00:05 12/16/24 08:25 Morphine Sulfate 4 Mg/Ml 1 Ml Carp\Vial IV 12/30/24 00:04 4 mg Q3H PRN Administration Pain (6,7,8,9,10) Ondansetron HCl 4 mg 12/16/24 00:05 12/16/24 08:25 Ondansetron Inj 2 Mg/Ml 2 Ml Vial IV 01/15/25 00:04 4 mg Q6H PRN Administration Nausea Exercise / Class Metabolic Activity Metabolic Activity: II 4-5 Yardwork/Stairs/Walk up hill Physical Exam Constitutional: no acute distress Mouth: no dentition abnormality Thyromental Distance: > or= 3.5 Finger Breadths Mallampati Class: II Neck: + visual inspection normal Respiratory: + respiratory effort normal and + clear to auscultation bilaterally; no respiratory distress Cardiovascular: + regular rate and + regular rhythm; no murmur Musculoskeletal: no limited cervical ROM Psychiatric: + alert and + oriented x 3 ASA ASA1 Proposed Anesthesia Proposed Anesthesia: General Risk / Benefits Reviewed With: PT / POA / Parent / Guardian, Accepts Plan and Informed Consent Obtained
[2024-12-16] MEDS ORDERED: LIDOCAINE 2% 2 ML VIAL/AMP(20MG/ML) INFIL ONE (10:06)
[2024-12-16] MEDS ORDERED: ROCURONIUM BROMIDE 10 MG/ML 5 ML VIAL IV ONE (10:06)
[2024-12-16] MEDS ORDERED: PROPOFOL IV EMULSION 10 MG/ML 20 ML VIAL IV ONE (10:06)
[2024-12-16] MEDS ORDERED: DEXAMETHASONE SOD INJ 4 MG/ML VIAL ONE (10:06)
[2024-12-16] MEDS ORDERED: ONDANSETRON INJ 2 MG/ML 2 ML VIAL ONE (10:06)
[2024-12-16] MEDS ORDERED: MIDAZOLAM HCL 1 MG/ML 2ML VIAL ONE (10:06)
[2024-12-16] MEDS ORDERED: SUGAMMADEX SODIUM 200 MG/2 ML VIAL IV ONE (10:32)
[2024-12-16] MEDS: BUPIVACAINE/EPINEPHRINE 0.5% MPF 1:200,000 30 ML VIAL ONE (10:35)
--- NOTE | 2024-12-16 10:47 | Operative Report ---
Post Operative Report Pre & Post Diagnosis Operation Date: 12/16/24 07:00 Acute appendicitis I identified the patient and participated in the time-out.: Yes Procedure Operation Date: 12/16/24 07:00 Laparoscopic appendectomy Surgeon Gama Curtis MD Director Of Billing None Estimated Blood Loss 12 Findings Consistent with Post-Op Diagnosis Specimens Appendix to pathology Drains None Anesthesia Type General Complications none Disposition Accompanied Patient To Recovery: No Disposition: Recovery Room Indications This 44-year-old female who is admitted to the ED with acute abdominal pain. A workup showed an acute appendicitis. Placed on IV fluids IV antibiotics. She will take the OR for laparoscopic appendectomy. She understands all the risks. Description of Procedure The patient was taken to the OR and underwent excellent general anesthesia. Their abdomen was prepped and draped in normal sterile fashion. A transverse supraumbilical incision was made, towel clamps were used to create tension on the abdominal wall as an 11 port was placed in the supraumbilical position, inserted with visualization gently into the peritoneal cavity. Good pneum operitoneum was achieved to about 15 mmHg pressure. Once this was done, a visualized 12 mm left lower quadrant port , a 5mm suprapubic port , and a 5mm right upper quadrant port were all placed in normal fashion. Patient was then placed in head down and rolled to the left. A good diagnostic lap was performed. They had obvious acute appendicitis with some purulent exudate but no perforation. The cecum was grasped with an atraumatic grasper. A grasper was then was then used to grasp the tip of the appendix. The mesoappendix was splayed open and a harmonic scalpel was used to take down the mesoappendix. The base of the appendix was identified and an Endo FILOMENA stapler was used to transect the appendix at its base. A endobag was then inserted through the left lower quadrant port and the appendix was placed into the bag, The bag was removed through the left lower quadrant port. The appendix was sent for pathologic evaluation. The pneumoperitoneum was re-established after the 12 mm port was replaced. Saline was then used to irrigate the abdomen. There was no active bleeding nor any other abnormalities noted in the abdomen. The patient was then placed back in neutral position, the ports were removed and the pneumoperitoneum decompressed. The 12mm port fascia was then closed using a 0 Vicryl. The skin was then anesthetized with 0.5% Marcaine with epinephrine local. Interrupted Vicryl is used to close the skin. Dermabond was used to reinforce the incisions. Sterile dressings were applied. The patient tolerated procedure without complications was sent to the postop recovery period of observation. They will be sent to the floor for the rest of their care. I attest to the content of the Intraoperative Record and any orders documented therein. Any exceptions are noted below.
--- NOTE | 2024-12-16 13:18 | Anesthesiology Progress Note ---
Date of Service December 16, 2024 Anesthesia Post Procedure Vital Signs Vital Signs: Temp Pulse Pulse Pulse Resp BP BP 12/16/24 12:56 36.8 C 71 16 12/16/24 12:29 36.8 C 72 16 12/16/24 11:57 37.1 C 64 16 12/16/24 11:40 68 19 12/16/24 11:30 62 18 12/16/24 11:20 37 C 69 20 12/16/24 11:10 72 21 12/16/24 11:00 63 14 12/16/24 10:50 36.4 C L 71 16 12/16/24 08:45 36.7 C 90 15 111/67 12/16/24 07:16 37.5 C 74 17 95/60 L 12/16/24 02:16 87 18 121/74 12/16/24 02:15 37.4 C 87 16 117/72 12/15/24 23:25 71 20 121/70 12/15/24 21:54 63 12/15/24 21:39 70 20 122/73 12/15/24 20:53 36.5 C 70 18 103/68 BP Pulse Ox O2 Del Method O2 Flow Rate 12/16/24 12:56 105/67 92 Room Air 12/16/24 12:29 107/71 93 Room Air 12/16/24 11:57 108/67 92 Room Air 12/16/24 11:40 102/63 91 Room Air 12/16/24 11:30 103/65 93 Room Air 12/16/24 11:20 114/70 93 Room Air 12/16/24 11:10 98/74 L 98 Oxymask 12/16/24 11:00 110/65 99 Oxymask 5 12/16/24 10:50 106/61 98 Oxymask 5 12/16/24 08:45 94 Room Air 12/16/24 07:16 98 Room Air 12/16/24 02:16 97 Room Air 12/16/24 02:15 98 Room Air 12/15/24 23:25 99 Room Air 12/15/24 21:54 12/15/24 21:39 99 Room Air 12/15/24 20:53 100 Room Air Pain Intensity Right Abdomen: Pain Intensity: 5 Transfer of Care Handoff Completed per policy Notes Mental Status: alert / awake / arousable and participated in evaluation Nausea / Vomiting: adequately controlled Pain: adequately controlled Airway Patency, RR, SpO2: stable & adequate BP & HR: stable & adequate Hydration State: stable & adequate Anesthetic Complications: no major complications apparent and Pt Satisfied with anesthetic care
[2024-12-16] MEDS ORDERED: HYDROCODONE/ACETAMOPHEN 5/325MG TAB PO PRN (16:31)
[2024-12-16] MEDS: DOCUSATE SODIUM 100 MG CAP PO SCH (21:00)
[2024-12-16] MEDS: HYDROCODONE/ACETAMOPHEN 5/325MG TAB PO PRN (21:00)
[2024-12-17] MEDS: SIMETHICONE 80 MG CHEW PO PRN (04:34)
[2024-12-17 07:30] VITALS: BP 105/69; RESP 16; TEMP 98.1; O2SAT 93
--- NOTE | 2024-12-17 08:35 | Discharge Summary ---
Date of Service December 17, 2024 Admission HPI Per Admitting Provider This is a 44-year-old female admitted through the ED with an acute appendicitis. She came in with abdominal pain underwent a workup which showed an obvious early appendicitis. She has begun on IV antibiotics. Principal Diagnosis acute appendicitis Discharge Exam Constitutional WD/WN, vitals as above cooperative and comfortable; no acute distress and not ill appearing Respiratory normal respiratory effort; no respiratory distress, no labored breathing and no retractions Gastrointestinal (Abdomen) Inspection/Auscultation: abdomen normal to inspection and + abdominal surgical incision (c/d/i with dermabond); abdomen not distended Percussion/Palpation: + abdomen tender (abdominal incisions and RLQ) and abdomen soft; no guarding and abdomen not rigid Skin no rashes, warm and dry Psychiatric A+Ox3, euthymic affect Discharge Data Allergies Allergy/AdvReac Type Severity Reaction Status Date / Time sulfamethoxazole Allergy Intermediate ITCHY RED Verified 12/16/24 08:51 [From Bactrim] SKIN/NAUSEA/HEADACHE/ABD PAIN trimethoprim [From Bactrim] Allergy Intermediate ITCHY RED Verified 12/16/24 08:51 SKIN/NAUSEA/HEADACHE/ABD PAIN Consultations 12/16/24 00:21 ED Decision to Admit Stat Procedures Performed Operation Date: 12/16/24 07:00 Actual Procedures p Laparoscopic Appendectomy(Not Applicable) - Gama Curtis MD Ordered Studies 12/15/24 21:46 CT Abd and Pelvis [CT abd pelvis IV con only] Stat US pelvic complete Stat 12/15/24 21:47 US transvaginal Stat Hospital Course (1) Acute appendicitis: Patient was taken to operating room for laparoscopic appendectomy by Dr. Curtis on 12/16/24. Patient found to have uncomplicated appendicitis. Patient tolerated procedure without difficulty and transferred to med/surg floor for postop care. Tolerated advanced diet, pain was controlled initially with IV morphine and then oral Doucette . Gas pain relieves with simethicone. Urinating and ambulating without difficulty. Patient was discharged home on POD # 1 in stable condition. Total Time Total Time Spent Total Time Spent (In Minutes): 30 Total Time Includes: Examination of the Patient, Discharge Planning, Medication Reconciliation and Communication With Other Providers Discharge Plan Discharge Items Patient Disposition: Home - Self-Care Reason For Visit: APPENDICITIS Discharge Diagnosis: acute appendicitis Condition on Discharge: Good Activity: Per Instructions section Non-emergency contact: Primary Care Provider and Surgeon Call non-emergency contact if: you have any medication questions, your pain is not controlled, you have a fever, your temperature is above 101, your wound has increased redness, your wound has increased drainage and your wound pain has in creased Follow-up/Referrals: Gama Curtis MD [Physician] - 12/30/24 1:15 pm (Please arrive for appointment at 1:00) Kurtis Merritt DO [Primary Care Provider] - Diet: Regular Addtl Attending Provider Instructions: Post-Surgical ~Discharge Instructions Activity Recommendations: - lifting limitation: (20 pounds for 2-3 weeks), - exercise/sex/sports limit: (nonstrenuous for 2 weeks), - driving or machine use limit: (none for at least 3 days, no driving while taking narcotic pain medication), - Shower/bathe limit: (may shower , no submerging incisions underwater for 2 weeks) Diet: - Resume previous diet SPECIAL CARE INSTRUCTIONS: - May shower. Let water run over area and pat dry. - Leave surgical glue on incisions, this will fall off on its own. Do not pick at the glue as this can cause infection. - Call the surgeon's office with any questions or concerns - - (ex. temperature higher than 101 degrees F, excessive bleeding or pain). MEDICATIONS: - Resume previous medications unless instructed otherwise by your surgeon. - May alternate extra strength Tylenol and Ibuprofen as needed for mild to moderate pain - 650 mg Tylenol every 6 hours as needed - Ibuprofen 600 mg every 6 hours as needed (take with food) - Doucette (hydrocodone/acetaminophen) 1 every 6 hours, as needed for moderate to severe pain - Each tablet of Doucette has 325 mg of Tylenol in in. Do not exceed 3000 mg of Tylenol in 24 hour period _ You can also try alternating the Doucette with the Ibuprofen first day or two after discharge, then once pain improving can alternate Tylenol and Ibuprofen. - Recommend daily stool softener (Colace) while taking narcotic pain medication to prevent constipation or straining. Drink plenty of water daily. FOLLOW UP VISIT: - If not already scheduled, please call the office to schedule a two week follow-up appointment. Office number For your trip to [place]. Would recommend stopping every 2 hours to get out of car and walk for 5-10 minutes. Keep legs moving while sitting in care to keep blood flowing in your lower legs and wear fatou stockings during your drive. No heavy lifting of luggage. While walking through [place] park take breaks if needed. Okay to ride rides as long as you are feeling okay and not having a lot of pain. Pending Studies at Discharge: Yes (pathology) Stand-Alone Forms: My [facility], Pain - Opioid Pain Management, Smoking Cessation Medications and DC Order Prescriptions: New hydrocodone-acetaminophen 5-325 mg tablet 1 tab PO Q6H PRN (Reason: pain) Qty: 12 0RF ondansetron 4 mg tablet,disintegrating 4 mg PO Q6H PRN (Reason: nausea and vomiting) Qty: 15 0RF docusate sodium [Colace] 100 mg capsule 100 mg PO DAILY Qty: 30 0RF simethicone 80 mg tablet,chewable 80 mg PO QID PRN (Reason: gastrointestinal spasms or cramping) Qty: 15 0RF Continued multivitamin Tablet 1 tab PO DAILY fluticasone propionate 50 mcg/actuation spray,suspension 1 spray INTRANASAL DAILY Discharge Orders: Discharge Order (Routine); Ordered 12/17/24 Ordered By: Brittaney Jose/Other Patient Handouts: Appendectomy Admission Data Admit Date/Time: 12/16/24 00:06 Attending Provider: Gama Curtis Admit Provider: Gama Curtis Primary Care Provider: Kurtis Merritt Other Providers: Gama Curtis Other Interventions: Discharge Summary Assessment (RN) Last Done: 12/17/24 09:01
[2024-12-17 09:02] VITALS: PULSE 68
[2024-12-17] MEDS: IBUPROFEN 600 MG TAB PO PRN (09:23)
== END 2024-12-17 11:08 | disposition home or self-care (01) ==
LOC: 3E 20:52 → ED 20:52 → 3E 12-16 02:16